=== PATIENT | male | born 1970 | race Caucasian/White ===

== ENCOUNTER → 2020-05-28 | Outpatient (CLI) | payer OTHER ==
[~2020-05-28] MED LIST: DULERA 100 MCG8.8 GM INH; IBUPROFEN600 MG PO; LEVAQUIN750 MG PO; LORTAB 7.5-3251 EACH PO; MEDROL DOSEPAK 24 MG PO; MOBIC15 MG PO; NAPROSYN500 MG PO; PERCOCET 5/325 T1 EA PO; PROAIR HFA8.5 GM INH; SYMBICORT 16010.2 GM INH; TYLENOL325 MG PO; ZITHROMAX250 MG PO
[2020-05-28 09:02] LABS: HEMOGLOBIN 14.5 gm/dl (14.0-17.5); RED BLOOD COUNT 4.74 M/UL (4.20-5.50); WHITE BLOOD COUNT 7.9 K/UL (4.5-11.0)
[2020-05-28 09:23] LABS: BUN/CREATININE RATIO 23 (0-10)
== END ==
LOC: CT 08:30
PROVIDERS: Internal Medicine Hematology & Oncology
DX: C34.11 Malignant neoplasm of upper lobe, right bronchus or lung (principal); R91.1 Solitary pulmonary nodule; Z98.890 Other specified postprocedural states; R91.8 Other nonspecific abnormal finding of lung field
CPT/HCPCS: 36415; 71260; 80053; 85027; Q9967

== ENCOUNTER → 2020-12-27 | Outpatient (CLI) | payer OTHER | LOC: CT 09:30 | DX: C34.11 Malignant neoplasm of upper lobe, right bronchus or lung (principal); R91.1 Solitary pulmonary nodule | CPT/HCPCS: 71260; Q9967 ==

== ENCOUNTER 2021-08-31 09:34 | Emergency (ER) | payer OTHER ==
[2021-08-31 10:59] LABS: HEMOGLOBIN 13.9 gm/dl (14.0-17.5); RED BLOOD COUNT 4.44 M/UL (4.20-5.50); WHITE BLOOD COUNT 11.2 K/UL (4.5-11.0)
[2021-08-31 11:43] LABS: BUN/CREATININE RATIO 31 (0-10)
[2021-08-31] MEDS ORDERED: BENZONATATE200 MG PO (12:04)
[2021-08-31] MEDS ORDERED: MEDROL DOSEPAK 24 MG PO (12:04)
== END 2021-08-31 12:35 | disposition home or self-care (01) ==
LOC: ER1 09:34
PROVIDERS: Physician Assistant
DX: J40 Bronchitis, not specified as acute or chronic (principal); Z87.891 Personal history of nicotine dependence; Z20.822 Contact with and (suspected) exposure to COVID-19; Z85.118 Personal history of other malignant neoplasm of bronchus and lung
CPT/HCPCS: 0240U; 71046; 80053; 82550; 82553; 84484; 85025; 99283

== ENCOUNTER 2021-09-11 16:03 | Emergency (ER) | payer OTHER ==
[~2021-09-11 16:03] MED LIST changes: +BENZONATATE200 MG PO
[2021-09-11 17:57] LABS: HEMOGLOBIN 13.4 gm/dl (14.0-17.5); RED BLOOD COUNT 4.31 M/UL (4.20-5.50); WHITE BLOOD COUNT 12.4 K/UL (4.5-11.0)
[2021-09-11 18:21] LABS: BUN/CREATININE RATIO 26 (0-10)
[2021-09-11] MEDS ORDERED: AMOX TR-K CLV1 EAC4 PO (19:23)
== END 2021-09-11 19:41 | disposition home or self-care (01) ==
LOC: ER1 16:03
PROVIDERS: Nurse Practitioner
DX: K57.32 Diverticulitis of large intestine without perforation or abscess without bleeding (principal); F17.210 Nicotine dependence, cigarettes, uncomplicated; Z85.118 Personal history of other malignant neoplasm of bronchus and lung; Z90.2 Acquired absence of lung [part of]; Z20.822 Contact with and (suspected) exposure to COVID-19
CPT/HCPCS: 0240U; 80053; 80076; 81001; 83605; 83690; 85025; 96374; 96375; 99284; J2270; J2405; Q9967

== ENCOUNTER 2021-10-22 08:56 | Emergency (ER) | payer OTHER ==
[~2021-10-22 08:56] MED LIST changes: +AMOX TR-K CLV1 EAC4 PO
[2021-10-22] MEDS ORDERED: BACTRIM 400-801 EACH PO (10:05)
== END 2021-10-22 11:36 | disposition home or self-care (01) ==
LOC: ER1 08:56
DX: L02.413 Cutaneous abscess of right upper limb (principal); A49.02 Methicillin resistant Staphylococcus aureus infection, unspecified site
CPT/HCPCS: 10060; 87070; 87077; 87186; 87205; 99283